=== PATIENT | female | born 1955 | race Caucasian/White ===

== ENCOUNTER 2019-01-20 07:57 | Emergency (ER) | payer MEDICAID, OTHER ==
[~2019-01-20] VITALS: Ht 152.4 cm; Wt 64.8 kg
[~2019-01-20 07:57] MED LIST: CYCL10TA7 PO; IBUP-1542 PO
[2019-01-20 07:59] VITALS: Ht 152.4 cm; Wt 64.8 kg
[2019-01-20] MEDS ORDERED: KETOROLAC 30 MG INJ IM STA (08:14)
[2019-01-20] MEDS ORDERED: CYCLOBENZAPRINE 10 MG TAB PO ONE (08:30)
--- NOTE | 2019-01-20 09:05 | ERD ---
ER Documentation Chief Complaint Chief Complaint right knee pain >mths, getting worse HPI 63-year-old female presented to ED for right knee pain over the past 3 months. Patient states the pain is been getting worse she denies any trauma or injury to it. Patient is able to ambulate without difficulty. Patient denies any past medical history denies any allergies to medications states she is currently not taking any medications. Patient states she has tried ibuprofen which has only helped a little bit with symptoms. The patient states the pain is worse when she is sitting still and improves when she is walking. The patient rates the pain 8 out of 10 ROS All systems reviewed and are negative except as per history of present illness. Medications Home Meds Active Scripts Ibuprofen* (Motrin*) 600 Mg Tab, 600 MG PO Q6, #30 TAB Prov:YINKA FOFANA PA-C 01/20/19 Cyclobenzaprine Hcl* (Cyclobenzaprine Hcl*) 10 Mg Tablet, 10 MG PO TID, #15 TAB Prov:YINKA FOFANA PA-C 01/20/19 Allergies Allergies: Coded Allergies: No Known Allergy (Unverified , 01/20/19) PMhx/Soc History of Surgery: Yes (HYSTERECTOMY) Anesthesia Reaction: No Hx Neurological Disorder: Yes (MIGRAINE) Hx Respiratory Disorders: No Hx Cardiac Disorders: No Hx Psychiatric Problems: No Hx Miscellaneous Medical Probl: No Hx Alcohol Use: No Hx Substance Use: No Hx Tobacco Use: No Smoking Status: Never smoker FmHx Family History: No diabetes, No coronary disease, No other Physical Exam Vitals Vital Signs Date Temp Pulse Resp B/P (MAP) Pulse Ox O2 O2 Flow FiO2 Time Delivery Rate 01/20/19 97.5 79 18 141/74 100 07:59 (96) Physical Exam GENERAL: Moderate distress CHEST: Clear to auscultation bilaterally. There are no rales, wheezes or rhonchi. HEART: Regular rate and rhythm. No murmurs, clicks, rubs or gallops. ABDOMEN:Soft, nontender and nondistended. Good bowel sounds. No rebound or guarding. No gross peritonitis. No gross organomegaly or masses. No Acosta sign or McBurney point tenderness. BACK: Spasm palpated in right paraspinal muscles, straight leg raise provokes sciatica symptoms down the right leg EXTREMITIES: Equal pulses bilaterally. There is no peripheral clubbing, cyanosis or edema. No focal swelling or erythema. Full range of motion. Grossly neurovascularly intact. Results 24 hrs Current Medications Medications Dose Sig/Tejal Start Time Status Last (Trade) Ordered Route PRN Stop Time Admin Dose Reason Admin Ketorolac 30 mg ONCE STAT 01/20/19 DC 01/20/19 Tromethamine IM 08:14 08:24 (Toradol) 01/20/19 08:15 10 mg ONCE ONCE 01/20/19 DC 01/20/19 Cyclobenzapri PO 08:30 08:24 ne HCl 01/20/19 08:31 (Flexeril) Procedures/MDM ED course: The patient was stable throughout the ED course. The patient and/or family informed of laboratory and diagnostic imaging results throughout the ED course. Medications given in ER: Toradol Cyclobenzaprine Patient tolerated medication well with no adverse reactions. Patient reported improvement in pain. Medical decision makin-year-old female presented to ED for right knee pain going on for a couple months. Patient was afebrile vitals were within normal limits. The patient denies any trauma and states the symptoms have been more chronic over the last 2 months. Physical exam revealed tenderness to palpation to the right paraspinal muscles with spasm felt. The patient had sciatica symptoms with straight leg raise on the right side. There appears to be no trauma erythematous drainage coming from the knee. Patient has good range of motion in the extremity, good sensation in the extremity, distal pulses are equal bilateral. Extremity is pink warm and dry. The patient denies any urinary retention or any urinary symptoms the patient was given a Toradol injection cyclobenzaprine while in the ED. The patient is able to ambulate without difficulty and states the pain is only worse when she is not moving around. This time I have low suspicion for spinal column fracture, dislocation , hip fracture, osteomyelitis, epidural abscess, spinal abscess, cauda equina syndrome dislocation, fracture, neurovascular injury, pyelonephritis, kidney stones. Upon reevaluation the patient she states the pain is improved and she feels much better with the medication we gave her. At this time I believe the symptoms are most consistent with back spasms and arthritis. Advised the patient that she may need to receive physical therapy if the pain persist. I advised the patient that if the symptoms worsen she needs to return to ER immediately. Advised patient she is to follow-up primary care provider in 1 to 2 days. All questions were answered upon discharge and the patient is agreement to the treatment plan Prescription for home: Cyclobenzaprine Motrin I have discussed with the patient proper use and common side effects to expert with the medication . I advised the patient/family to speak with the pharmacist dispensing the medication to be advised of any potential drug interactions with other medication or supplements they may be taking. Discharge: At this time, patient is stable for discharge and outpatient management. I have instructed the patient to follow-up with his\her primary care physician in 1 to 2 days. I have discussed with the patient the possibility of needing to see a specialist for further work-up and imaging studies if symptoms persist. I have instructed the patient to promptly return to the ER for any new or worsening symptoms including increased pain, fever, nausea, vomiting, weakness or LOC. The patient and\or family expressed understanding of and agreement with this plan. All questions were answered. Home care instructions were provided. Disclaimer: Inadvertent spelling and grammatical errors are likely due to EHR\dictation software use and do not reflect on the overall quality of patient care. Also, please note that the electronic time recorded on the note does not necessarily reflect the actual time of the patient encounter. Departure Diagnosis: Primary Impression: Back spasm Additional Impression: Sciatica of right side Condition: Stable Patient Instructions: Back Pain W/ Sciatica Referrals: [facility] YOU HAVE RECEIVED A MEDICAL SCREENING EXAM AND THE RESULTS INDICATE THAT YOU DO NOT HAVE A CONDITION THAT REQUIRES URGENT TREATMENT IN THE EMERGENCY DEPARTMENT. FURTHER EVALUATION AND TREATMENT OF YOUR CONDITION CAN WAIT UNTIL YOU ARE SEEN IN YOUR DOCTORS OFFICE WITHIN THE NEXT 1-2 DAYS. IT IS YOUR RESPONSIBILITY TO MAKE AN APPOINTMENT FOR FOLOW-UP CARE. IF YOU HAVE A PRIMARY DOCTOR --you should call your primary doctor and schedule an appointment IF YOU DO NOT HAVE A PRIMARY DOCTOR YOU CAN CALL OUR PHYSICIAN REFERRAL HOTLINE AT IF YOU CAN NOT AFFORD TO SEE A PHYSICIAN YOU CAN CHOSE FROM THE FOLLOWING [facility] CLINICS [facility] [address] [facility] [address] [facility]. [facility] [address] [facility] [address] [facility] [address] [facility]. [facility] [address] [facility]. [facility] YOU HAVE RECEIVED A MEDICAL SCREENING EXAM AND THE RESULTS INDICATE THAT YOU DO NOT HAVE A CONDITION THAT REQUIRES URGENT TREATMENT IN THE EMERGENCY DEPARTMENT. FURTHER EVALUATION AND TREATMENT OF YOUR CONDITION CAN WAIT UNTIL YOU ARE SEEN IN YOUR DOCTORS OFFICE WITHIN THE NEXT 1-2 DAYS. IT IS YOUR RESPONSIBILITY TO MAKE AN APPOINTMENT FOR FOLOW-UP CARE. IF YOU HAVE A PRIMARY DOCTOR --you should call your primary doctor and schedule and appointment IF YOU DO NOT HAVE A PRIMARY DOCTOR YOU CAN CALL OUR PHYSICIAN REFERRAL HOTLINE AT . IF YOU CAN NOT AFFORD TO SEE A PHYSICIAN YOU CAN CHOSE FROM THE FOLLOWING [facility] INSTITUTIONS: [facility] [address] [place] [address] [facility] [address] [place] [address] [facility] + [facility] [address] [place] [address] Additional Instructions: Call your primary care doctor TOMORROW for an appointment during the next 1-2 days.See the doctor sooner or return here if your condition worsens before your appointment time. YINKA FOFANA PA-C Jan 20, 2019 09:05
== END 2019-01-20 08:43 | disposition home or self-care (01) ==
LOC: FTE 07:57
DX: M62.830 Muscle spasm of back (principal); M54.31 Sciatica, right side
CPT/HCPCS: 96372; J1885; Z7502; Z7610